=== PATIENT | male | born 2000 | race Caucasian/White ===

== ENCOUNTER 2022-01-22 02:45 | Emergency (ER) | payer MEDICAID, SELFPAY ==
[2022-01-22 02:46] VITALS: BP 119/65; PULSE 73; RESP 17; TEMP 36.9; O2SAT 98; BMI 25.0
--- NOTE | 2022-01-22 03:33 | RAD_ITS ---
EXAM: XR PELVIS, 1 OR 2 VIEWS CLINICAL INDICATION: Injury/Pain TECHNIQUE: Frontal view of the pelvis. This report was created using [employer] report generation technology. COMPARISON: None. FINDINGS: BONES/JOINTS: Unremarkable. No displaced fracture. No destructive or sclerotic lesions. Note that overlapping bowel shadows may however obscure fine detail. Sacroiliac joints are unremarkable. No widening of the pubic symphysis. The articular structures are unremarkable. SOFT TISSUES: Unremarkable. No soft tissue swelling or gas. RAD/Pelvis 1 or 2 Views IMPRESSION: No evidence of displaced pelvic fracture. Electronically Signed: Alcides Pineda MD at 4:22 EDT ,
--- NOTE | 2022-01-22 03:33 | RAD_ITS ---
EXAM: XR RIGHT FEMUR, 2 VIEWS CLINICAL INDICATION: Injury/Pain TECHNIQUE: Frontal and lateral views of the right femur. This report was created using [employer] report generation technology. COMPARISON: None. FINDINGS: BONES/JOINTS: Unremarkable. No acute fracture. No subluxation. Normal alignment. Preservation of the joint space. No sclerotic or destructive changes observed. SOFT TISSUES: Unremarkable. No soft tissue swelling or gas. No radiopaque foreign body. RAD/Femur Min 2 Views IMPRESSION: Negative right femur x-rays. Electronically Signed: Alcides Pineda MD at 4:22 EDT ,
--- NOTE | 2022-01-22 03:41 | EDS_ITS ---
HPI History of Present Illness Chief Complaint: Lower Extremity Injury Informant: patient Narrative Narrative: Patient is a 21-year-old male with no significant past medical history presenting with right hip pain. Patient states he was on a quarter pipe on his skateboard when he fell off. He landed on his right hip. He fell approximately 4 feet. He was able to walk initially however after about an hour he had worsening pain is not been able to bear weight since. Has had a prior injury to that hip from falling through a roof about a year ago has never had any surgery. Does not see an orthopedist. Has some intermittent tingling going down his leg into his foot. Has some associated right lower back pain. No other complaints at this time. Did not hit his head. No report of loss of consciousness. Did take Motrin prior to arrival. PFSH PFSH Home Medications ibuprofen 600 mg tablet 600 mg PO Q6H PRN pain #20 tabs 01/22/22 [Rx Last Taken Unknown] Allergy/AdvReac Type Severity Reaction Status Date / Time No Known Allergies Allergy Verified 01/22/22 02:48 Social History Smoking Status: Never smoker ROS ROS ED Constitutional Constitutional ED: Denies chills or fever(s) Eyes Eyes: Denies change in vision ENT ENT ED: Denies ear pain or rhinorrhea Cardiovascular Cardiovascular: Denies chest pain Respiratory/Chest Respiratory/Chest: Denies cough Gastrointestinal Gastrointestinal: Denies abdominal pain or vomiting Musculoskeletal Musculoskeletal: Reports back pain and other Details: right hip pain Integumentary Reports Abrasions Neurologic Neurologic: Denies headache(s), paresthesias or weakness Psychiatric Psychiatric: Denies anxiety Hematologic/Lymphatic Hematologic/Lymphatic: Denies easy bleeding or easy bruising EXAM Physical Exam Const Vital Signs: 01/22/22 02:46 Temperature 98.4 F Temperature Source Temporal Pulse Rate 73 Respiratory Rate 17 Blood Pressure 119/65 Blood Pressure Mean 83 Pulse Ox 98 Oxygen Delivery Method Room Air Positive well nourished and well developed General Appearance ED: well developed and NAD HEENT Reports moist mucous membranes Neck full ROM and supple Chest Wall inspection of chest normal and palpation of chest normal Resp normal respiratory effort and clear to auscultation bilaterally Cardio regular rate and regular rhythm Cardio Narrative: 2+ DP pulses Back/Spine no CVA tenderness Thoracic Spine / Upper Back: Negative for thoracic spinal tenderness Lumbar Spine / Lower Back: Negative for lumbar spinal tenderness Extremity Extremity Narrative: Tenderness palpation of the proximal right lateral femur. Pain with logroll of the leg. No direct tenderness to palpation of the hip joint. No tenderness palpation of the right knee or lower leg. No obvious deformity. Leg compartments are soft. Neuro oriented x3, CN's II-XII intact bilaterally, moves all extremities and no sensory deficits noted Skin Skin Narrative: Superficial abrasions noted to the right hip. MDM MDM MDM Narrative Medical decision making narrative: Patient evaluated for right thigh pain/hip pain after he fell off a skateboard. Has associated abrasions. No obvious deformity. Compartments are soft. He is hemodynamically stable. He is neurovascularly intact. Femur x-ray as well as hip/pelvic x-ray interpreted by myself as well as radiology do not show any acute fracture. Patient already has crutches. Is given Tylenol in the ER. On reevaluation states he feels better. Is given an ice pack. Is discharged home with referral for orthopedics. Is counseled on alternating ibuprofen and Tylenol. Is counseled return precautions. He verbalizes agreement and understanding of this plan. Radiography Diagnostic Testing: Clinical Impression(s) from Imaging Studies Femur X-Ray 01/22/22 03:33 IMPRESSION: Negative right femur x-rays. Electronically Signed: Alcides Pineda MD at 4:22 EDT Reading Location ID and State: [facility] / [place] Tel , Service support , Pelvis X-Ray 01/22/22 03:33 IMPRESSION: No evidence of displaced pelvic fracture. Electronically Signed: Alcides Pineda MD at 4:22 EDT Reading Location ID and State: [facility] / [place] Tel , Service support , Discharge Plan Triage Chief Complaint: Lower Extremity Injury ED Provider: Felipa Domingo Dx/Rx/DC Orders Clinical Impression: Contusion of thigh, right, Fall from skateboard Instructions: ED Contusion, Lower Extremity Prescriptions: New ibuprofen 600 mg tablet 600 mg PO Q6H PRN (Reason: pain) Qty: 20 0RF Primary Care Provider: Fredis Berg Referrals: Pravin Diallo MD [STAFF PHYSICIAN] - Fredis Berg MD [Primary Care Provider] - Disposition Disposition: Home, Self Care
[2022-01-22] MEDS: Acetaminophen 500 MG Tablet 1000 MG PO (04:16)
[2022-01-22 05:07] VITALS: BP 124/74; PULSE 74; RESP 15; O2SAT 98
== END 2022-01-22 05:09 | disposition home or self-care (01) ==
PROVIDERS: Emergency Provider Emergency Medicine; PCP Pediatrics; Visit Provider Emergency Medicine
DX: S70.11XA Contusion of right thigh, initial encounter (principal); V00.131A Fall from skateboard, initial encounter; Y93.51 Activity, roller skating (inline) and skateboarding; Y99.8 Other external cause status
CPT/HCPCS: 72170; 73552; 99283

== ENCOUNTER 2023-01-27 14:16 | Emergency (ER) | payer MEDICAID, SELFPAY ==
[2023-01-27 14:17] VITALS: BP 136/64; PULSE 71; RESP 16; TEMP 36.7; O2SAT 98; BMI 22.8
--- NOTE | 2023-01-27 15:32 | ED.VIS.DENTA ---
HPI History of Present Illness Chief Complaint: Dental PFSH PFSH Home Medications ibuprofen 600 mg tablet 600 mg PO Q6H PRN pain #20 tabs 01/22/22 [Rx Last Taken Unknown] amoxicillin 875 mg-potassium clavulanate 125 mg tablet 1 tab PO BID #14 tabs 01/27/23 [Rx Last Taken Unknown] Allergy/AdvReac Type Severity Reaction Status Date / Time No Known Allergies Allergy Verified 01/22/22 02:48 Social History Smoking Status: Never smoker EXAM Physical Exam Const Vital Signs: 01/27/23 14:17 Temperature 98.1 F Temperature Source Temporal Pulse Rate 71 Respiratory Rate 16 Blood Pressure 136/64 H Blood Pressure Mean 88 Pulse Ox 98 Oxygen Delivery Method Room Air [facility] MDM Narrative Medical decision making narrative: HISTORY OF PRESENT ILLNESS: 22-year-old male here for right lower molar dental pain. States this was procedure coming in. States his dental appointment Thursday. Denies any drooling, neck stiffness, fever does note some mild right ear pain. REVIEW OF SYSTEMS: Pertinent positives: Right-sided lower dental pain, right ear pain Pertinent negatives: Drooling, neck stiffness PHYSICAL EXAM: Nursing triage notes reviewed, Vital signs reviewed Constitutional: please see mdm HENT: MMM, no evidence of dental abscess, no submandibular edema or induration, no tonsillar exudates or erythema, uvula midline, patient was controlling secretions, no drooling, no trimus, no dysphonia Eyes: Pupils equal round and reactive to light, Extraocular muscles intact Neck: No stridor, no JVD, full neck ROM Lungs: Clear to auscultation, No wheezing or rales. No increased work of breathing, no conversational dyspnea, no accessory muscle use, no nasal flaring. No respiratory distress noted Heart: Regular rate and rhythm, No murmurs, No rubs and No gallops, 2+ distal pulses (radial, femoral, posterior tibial) in all extremities MEDICAL DECISION MAKING: Chief Complaint: Dental pain External records reviewed:No recent ED visits or hospitalizations MDM Narrative: The patient was hemodynamically stable, afebrile, nontoxic-appearing. I considered the following differential diagnosis: Dental abscess, ANUG, Ludewig's angina, RPA, [employer], dental caries, gingivitis Exam unremarkable for the above mentioned differentials. Patient does have some gingival redness but no obvious abscess. Noted impacted wisdom tooth in the right lower molar region is likely source of his pain. Will give prophylactic antibiotics and instructions to take NSAIDs. History obtained from others: The patient significant other Shared decision making: I will have a discussion with the patient and or visitors regarding risk/benefits of further testing or admission. They will be made aware of of the risk/benefits inherent in this decision they will be given the opportunity to voice understanding. Consults: None Discharge Plan Triage Chief Complaint: Dental ED Provider: Hilton Serrano Dx/Rx/DC Orders Clinical Impression: Gum inflammation Instructions: ED Dental Pain Prescriptions: New amoxicillin-pot clavulanate 875-125 mg tablet 1 tab PO BID Qty: 14 0RF No Action ibuprofen 600 mg tablet 600 mg PO Q6H PRN (Reason: pain) Qty: 20 0RF Primary Care Provider: Fredis Berg Referrals: Fredis Berg MD [Primary Care Provider] - Activity Restrictions/Additional Instructions: Thank you for trusting us with your care today! Please take Tylenol (2 pills, 650 mg), ibuprofen (2 pills, 400 mg) every 6 hours as needed for pain and fever control. Please take Augmentin as prescribed. Please return to the emergency department if your symptoms change or worsen. Specifically develop drooling, difficulty swallowing, neck stiffness, swelling or any 3 jaw. Please follow with your dentist for further outpatient evaluation and management. Disposition Disposition: Home, Self Care
[2023-01-27] MEDS: Amox/Clavulanate 875 MG Tablet PO (15:46)
[2023-01-27] MEDS: Ibuprofen 200 MG Tablet 400 MG PO (15:46)
== END 2023-01-27 15:58 | disposition home or self-care (01) ==
PROVIDERS: Emergency Provider Emergency Medicine; Visit Provider Emergency Medicine
DX: K08.89 Other specified disorders of teeth and supporting structures (principal)
CPT/HCPCS: 99282